=== PATIENT | female | born 1975 | race Caucasian/White ===

== ENCOUNTER 2025-01-08 10:38 | Outpatient (CLI) | payer OTHER, SELFPAY ==
--- OUTSIDE RECORDS SUMMARY | 2025-01-08 11:00 | XMS_ITS | Clinical Summary ---
Author Organization [facility] [place] [address] [place] [id number] Care Team Providers Care Specification Writer Name Role Phone Eran Shields MD Primary Care Provider Lisa Muñiz SR. PRICING ANALYST Unavailable [phone] Allergies Active Allergy Reactions Criticality Noted Date Comments Methotrexate Other (See comments) Low 10/23/2017 Stomach cramps Medications ibuprofen/diphe nhydramine cit (ADVIL PM ORAL) Acti ve multivit with min-folic acid (One-A-Day Women VitaCraves) 200 mcg tablet,chewable Acti ve blood glucose diagnostic (glucose blood) strip 1 each by other route as needed 0 Active atorvastatin (LIPITOR) 20 mg tablet Take 1 tablet (20 mg total) by mouth daily 100 tablet 1 5 Active candesartan (ATACAND) 4 mg tabletIndicatio ns:Hypertension associated with type 2 diabetes mellitus (HCC) Take 1 tablet (4 mg total) by mouth daily 30 tablet 11 5 06/18/19 26 Active empagliflozin (JARDIANCE) 25 mg tabletIndicatio ns:type 2 diabetes mellitus Take 1 tablet (25 mg total) by mouth daily E11.65 90 tablet 4 5 Active ergocalciferol (VITAMIN D) 50,000 unit capsuleIndicati ons:Vitamin D deficiency Take 1 capsule (50,000 Units total) by mouth once a week 8 capsule 1 5 Active glipiZIDE (GLUCOTROL) 10 mg tablet Take 1 tablet (10 mg total) by mouth daily 90 tablet 2 5 Active insulin glargine (TOUJEO) 300 unit/mL (1.5 mL) pen for injectionIndica tions:Controlle d type 2 diabetes mellitus with hyperglycemia, with long-term current use of insulin Inject 10 Units under the skin nightly 3 mL 1 5 Active insulin regular human 4 unit/8 unit/ 12 unit (60) cartridge, w/inhalation deviceIndicatio ns:type 1 diabetes mellitus Inhale 4-16 Units 3 (three) times a day before meals And additional units as needed for glucose control. 48 units daily. Needs the 4,8,12 cartridge box [facility] [id number]. E11.65 30 day supply 180 each 11 5 Active levothyroxine (SYNTHROID) 137 mcg tablet Take 1 tablet (137 mcg total) by mouth daily 90 tablet 1 5 Active metFORMIN (GLUCOPHAGE) 1,000 mg tablet Take 1 tablet (1,000 mg total) by mouth 2 (two) times a day 200 tablet 1 5 Active metoclopramide (REGLAN) 10 mg tablet Take 1 tablet (10 mg total) by mouth every 6 (six) hours 20 tablet 5 Active PARoxetine CR (PAXIL-CR) 12.5 mg 24 hr tablet Take 1 tablet (12.5 mg total) by mouth every morning 100 tablet 1 5 Active ondansetron (Zofran) 4 mg tablet Take 1 tablet (4 mg total) by mouth every 8 (eight) hours as needed for nausea or vomiting 20 tablet 1 5 Active rOPINIRole (REQUIP) 0.25 mg tablet Take 2 tablets (0.5 mg total) by mouth 2 (two) times a day 400 tablet 5 Active tirzepatide (Mounjaro) 5 mg/0.5 mL pen injector injectionIndica tions:type 2 diabetes mellitus Inject 0.5 mL (5 mg total) under the skin every 7 days E11.65 2 mL 11 5 Active tiZANidine (ZANAFLEX) 2 mg tabletIndicatio ns:Muscle Spasm Take 1 tablet (2 mg total) by mouth every 6 (six) hours as needed for muscle spasms 30 tablet 3 5 Active blood-glucose sensor (FreeStyle Suzy 3 Plus Sensor) device USE DIRECTED FOR CONTINUOUS BLOOD SUGAR MONITORING. CHANGE SENSOR AFTER 14 DAYS OF USE. REMOVE OLD SENSOR BEFORE INSERTING A NEW SENSOR 3 each 3 5 Active Active Problems Problem Noted Date Diagnosed Date Class 1 obesity due to exces s calories with serious comorbidity and body mass index (BMI) of 30.0 to 30.9 in adult 03/31/2024 Assessment & Plan (03/31/2024 9:11 AM SKI MAKER): BMI Follow-up includes: nutrition counseling, exercise counseling, and education provided. Lesion of adrenal gland 06/19/2023 Screening for malignant neoplasm of colon 2022 Encounter to establish care 03/24/2022 Assessment & Plan (03/24/2022 12:16 PM SKI MAKER): A(n) initial well visit to establish care has been performed today. Kelly Vizcaino is not up to date on screening tests. She is in need of Diabetic eye exam, Diabetic foot exam, Breast cancer screening, a1c testing, Colon cancer screening, Diabetic kidney disease screening and Cholesterol screening- ordered. She is not up to date on needed preventative vaccinations; She is in need of Pneumonia (Prevnar-13 or Pneumovax- 23). Will start Rybelsus (sample) Ultimately, I would like to replace the glipizide, cut to 5 mg for now Continue metformin Labs pending Mammogram ordered, referral to GI for colonoscopy as well Hyperlipidemia associated with type 2 diabetes rafael abad 03/21/2022 Assessment & Plan (01/09/2024 12:24 PM CDT): This is a chronic condition which is elevated , not at goal. Goal is LDL less than 70 Continue atorvastatin Encouraged to eat healthy, include fresh fruits and vegetables daily and avoid eating fried foods more than once per week. Hypertension associated with type 2 diabetes pepito litus 03/21/2022 Assessment & Plan (01/09/2024 12:23 PM CDT): This is a chronic condition which is not at goal on arrival. At goal after 30 minutes of rest. Goal is less than 140/90 Encouraged to monitor weight and B/P at home. Assessment & Plan (03/14/2023 4:33 PM SKI MAKER): BP ok in office, pt states she gets white coat syndrome. Will monitor and continue current regimen. Renal function looks good. Major depressive disorder wi th single episode, in partial remission 05/20/2018 Gout 04/14/2018 Elbow pain 11/04/2017 Vasovagal near syncope 10/24/2017 Vitamin D deficiency 10/17/2017 Assessment & Plan (03/14/2023 4:33 PM SKI MAKER): Vitamin D low, sending in weekly supplement--will recheck in 3 months with next lab draw. Acquired hypothyroidism 10/07/2017 Assessment & Plan (03/14/2023 4:37 PM SKI MAKER): Over functioning, decreasing Synthroid to 137 mcg and recheck level in 6 weeks. Lateral epicondylitis of right elbow 10/07/2017 Palpitations 10/07/2017 Supraclavicular lymphadenopathy 10/07/2017 Type 2 diabetes mellitus wit h hyperglycemia, with long-term current use of insulin 10/07/2017 Assessment & Plan (01/09/2024 12:23 PM CDT): >>ASSESSMENT AND PLAN FOR DIABETES TYPE 2, CONTROLLED (HCC) WRITTEN ON 03/14/2023 4:36 PM BY DAKOTA TRAN NP A1c has worsened to 8.4 from previous 6.7. Her Toujeo was stopped at last visit and Rybelsus increased to 14 mg, she was unable to tolerate the GI side effects of the 14 mg so has been off of it for about 2-3 weeks. She is ok with going back to the Rybelsus 7 mg, she was able to tolerate. Will restart Toujeo at 10 units nightly (used to be on 15 units), weekly BG readings and be mindful of hypoglycemia. Restarting the Rybelsus at 7 mg. Discussed throttling back on the Glipizide but will monitor the sugars. Assessment & Plan (01/09/2024 12:23 PM CDT): This is a chronic condition which is elevated, not at goal . Goal is less than 7%. Personally reviewed most recent A1c - Lab Results Component Value Date HGBA1C 9.2 01/09/2024 Personally reviewed POC blood sugar- not at goal of 80-180 Lab Results Component Value Date POCGLU 280 01/09/2024 Medication- Continue Toujeo 20 units daily, continue glipizide 10 mg daily, increase Jardiance to 25 mg daily, continue metformin 1000 mg b.i.d.. Stop Rybelsus. Start mounjaro 2.5 mg weekly Monitor blood sugar continuously with cgm. Encouraged annual eye exam. last dilate eGFR- greater than 90 Kidney function-normal Urine microalbumin/creatinine ratio - at goal. Goal is <30 not treated with BARRY/ARB Resolved Problems Problem Noted Date Diagnosed Date Resolved Date Class 1 obesity due to exces s calories with serious comorbidity and body mass index (BMI) of 31.0 to 31.9 in adult 04/14/2018 03/31/2024 Assessment & Plan (01/09/2024 12:25 PM CDT): This is a chronic condition which is worsening Stop Rybelsus. Start mounjaro. 8 lbs. Weight increase since 10/08 Encouraged healthy eating which includes a low carb diet. Avoiding processed foods, sweets and fried foods. Encouraged 30 minutes of walking at least 5 days per week Discussed that exercise can be broken down into small sessions- for example 2- 15 minutes sessions or 3- 10 minutes sessions. Assessment & Plan (06/19/2023 11:52 AM CDT): BMI Follow-up includes: nutrition counseling, exercise counseling, and education provided. Immunizations Immunization Administration Dates Next Due Adenovirus 12/17/2013 Influenza, Quadrivalent, Spl it, Intramuscular 01/21/2017 Influenza, Quadrivalent, Spl it, Preservative Free, Intramuscular 12/18/2022,01/28/2020,01/06/2019 Influenza, Trivalent, Preser vative Free, Intramuscular 12/23/2023 Influenza, Unspecified 12/18/2022,12/21/2021,03/2017 Tdap 12/21/2021,01/06/2019,08/06/2017 Varicella 03/25/2020 Surgical History Surgery Date Site/Laterality Comments APPENDECTOMY 11/2008 HYSTERECTOMY 10/27/2008 CARPAL TUNNEL RELEASE Medical History Medical History Date Comments GERD (gastroesophageal reflux disease) 01/2020 Depression 12/16/2017 Diabetes mellitus 01/2016 Hypertension 01/2016 Thyroid disease 12/2006 H/O exploratory laparotomy Family History Medical History Relation Name Comments Diabetes Father Dominick Bynum Hypertension Father Dominick Bynum Heart disease Father's Brother Kaushal Bynum Diabetes Father's Sister Any Allen Cancer Maternal Grandfather Brannon Ontiveros Hyperlipidemia Maternal Grandmother Brooke Ontiveros Cancer Mother Any Bynum Hyperlipidemia Mother Any Bynum Neurofibromatosis Mother Any Bynum Diabetes Paternal Grandfather Silvio Bynum Heart attack Paternal Grandfather Silvio Bynum Heart disease Paternal Grandfather Silvio Bynum Stroke Paternal Grandfather Silvio Bynum Alzheimer's disease Paternal Grandmother Olena Bynum Stroke Paternal Grandmother Olena Bynum Breast cancer Neg Hx Ovarian cancer Neg Hx Thyroid cancer Neg Hx Relation Name Status Comments Father Dominick Bynum Father's Brother [place] Bynum Father's Sister Any Allen Maternal Grandfather Brannon Ontiveros Maternal Grandmother Brooke Ontiveros Mother Any Bynum Paternal Grandfather Silvio Bynum Paternal Grandmother Olena Bynum Social History Tobacco Use Types Packs/Day Years Used Date Smoking Tobacco: Former Cigarettes 0.1 37.2 S tarted: 10/17/1987 Passive Smoke Exposure: Past Smokeless Tobacco: Never Tobacco Cessation:Counseling Given: Not Answered AUDIT-C Answer Date Recorded Q1: How often do you have a drink containing alcohol? Never 04/03/2023 Q2: How many drinks containi ng alcohol do you have on a typical day when you are drinking? Patient does not drink Q3: How often do you have si x or more drinks on one occasion? Never 04/03/2023 PHQ-2 Answer Date Recorded PHQ-2 Total Score (If total score is 3 or more points, staff should administer the PHQ-9) 0 03/31/2024 Personal Safety Answer Date Recorded Have you ever been in or are you currently in a harmful physical or emotional relationship or is someone making you feel afraid or unsafe? 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 Not on file Not on file Obstetrics History Para Term AB IAB SAB Ectopic Multiple Livin g Live Births 3 3 3 Date Outcome GA Total Labor Labor/04/20 Weight Sex Type Anes PTL Bre A1 A5 Name Clin Term Term Term Last Filed Vital Signs Vital Sign Reading Time Taken Comments Blood Pressure 140/84 03/31/2024 8:49 AM SKI MAKER Pulse 90 03/31/2024 8:49 AM SKI MAKER Temperature 36 C (96.8 F) 03/31/2024 8:49 AM SKI MAKER Respiratory Rate 18 03/31/2024 8:49 AM SKI MAKER Oxygen Saturation 97% 03/31/2024 8:49 AM SKI MAKER Inhaled Oxygen Concentration - - Weight 84.4 kg (186 lb) 03/31/2024 8:49 AM SKI MAKER Height 167.6 cm (5' 6) 03/31/2024 8:49 AM SKI MAKER Body Mass Index 30.02 03/31/2024 8:49 AM SKI MAKER Plan of Treatment Health Maintenance Due Date Last Done Comments Colon Cancer Screening-Colonoscopy 1977 Hepatitis C Screening 1977 Hepatitis B Screening 1995 Pneumococcal vaccine <65 (1 of 2 - PCV) 01/26/1996 Regular Well Visit/Exam 18-64 03/21/2023 03/21/2022 Hemoglobin A1C 07/09/2024 01/09/2024, 07/0 07/2023, 05/27/2023, Additional history exists Breast Cancer Screening-Mammogram 08/05/2024 024, 05/01/2022 Albumin Creatinine Ratio, Urine 09/19/2024 4, 03/26/2022 Influenza Vaccine (#1) 2024 4, 12/18/2022, 12/18/2022, Additional history exists Dilated Eye Exam 12/01/2024 12/02/2023, , 05/12/2021 Foot Exam 01/08/2025 01/09/2024, 07/1 , 06/19/2023, Additional history exists Lipid Panel 03/26/2025 03/26/2024, 07/0 07/2023, 03/13/2023, Additional history exists eGFR 03/26/2025 03/26/2024, 07/0 07/2023, 03/13/2023, Additional history exists Depression Screening 03/31/2025 03/31/2024, 09/25/2023, 06/19/2023, Additional history exists DTaP/Tdap/Td Vaccine (4 - Td or Tdap) 12/22/2031 12/21/2021, 01/06/2019, 08/06/2017 Procedures Procedure Name Priority Date/Time Associated Diagnosis Comments EGFR Routine 03/26/2024 10:20 AM SKI MAKER Hypertension associated with type 2 diabetes mellitus (HCC) LIPID PANEL Routine 03/26/2024 10:20 AM SKI MAKER Hypertension associated with type 2 diabetes mellitus (HCC) POCT HEMOGLOBIN A1C Routine 01/09/2024 9:02 AM CDT Hypertension associated with type 2 diabetes mellitus (HCC) HM DIABETES EYE EXAM Routine 12/02/2023 4:10 PM CDT ALBUMIN CREATININE RATIO, URINE Routine 09/20/2023 12:53 PM CDT DM type 2 with diabetic mixed hyperlipidemia (HCC) Hypertension associated with type 2 diabetes mellitus (HCC) SCREENING MAMMOGRAM BILATERAL W SHALOM Schedule Routine, Read Routine (OP Routine) 08/06/2023 1:07 PM CDT Screening mammogram, encounter for from Last 3 Months or Most Recently Relevant to Health Maintenance Results * eGFR (03/26/2024 10:20 AM SKI MAKER) eGFR >90 >=60 mL/min/1. 73 m2 Comment: Interpretive Data Reference Interval Normal >/= 90 mL/min/1.73m2 Mildly decreased* 60 - 89 mL/min/1.73m2 Mildly to moderately decreased 45 - 59 mL/min/1.73m2 Moderately to severely decreased 30 - 44 mL/min/1.73m2 Severely decreased 15 - 29 mL/min/1.73m2 Kidney Failure < 15 mL/min/1.73m2 *Relative to young adult level Estimated glomerular filtration rate is determined by the 2020 CKD-EPI equation recommended by the National Kidney Foundation (A Unifying Approach to GFR Estimation: Recommendations of the NKF-ASK Task Force on Reassessing the Inclusion of Race in Diagnosing Kidney Disease, JASN 2020). The CKD-EPI equation should not be used for patients with unstable renal function and has not been validated in children and those over 70. Current interpretive data was last reviewed 2021. Blood 03/26/2024 10:2 0 AM SKI MAKER 03/26/2024 10:30 AM SKI MAKER us Eran Shields MD LAB BLOOD ORDERABLES Final Result TERRY OSEI (O'BRIEN) 1 [facility] Department [place] [address] * (ABNORMAL) Lipid panel (03/26/2024 10:20 AM SKI MAKER) Cholesterol 145 30 - 199 mg/dL Comment: Interpretive Data Ages < or = 19 years Acceptable: <170 mg/dL Borderline high: 170-199 mg/dL High: >or= 200 mg/dL Ages > or = 20 years Desirable: <200 mg/dL Borderline high: 200-239 mg/dL High: >or= 240 mg/dL Literature References: 1. Expert Panel on Integrated Guidelines for Cardiovascular Health and Risk Reduction in Children and Adolescents. Pediatrics 2011;128:S213 2. NCEP Expert Panel. Circulation 2004;110:227 Current Interpretive Data was last revised on 2017. Triglycerides 164(H) <=149 mg/dL TERRY OSEI (O'BRIEN) Comment: Interpretive Data Ages < or = 9 years Acceptable: <75 mg/dL Borderline high: 75-99 mg/dL High: >or= 100 mg/dL Ages 10 to 20 years Acceptable: <90 mg/dL Borderline high: 90-129 mg/dL High: >or= 130 mg/dL Ages > or = 20 years Desirable: <150 mg/dL Borderline high: 150-199 mg/dL High: 200-499 mg/dL Very high: >or= 499 mg/dL Literature References: 1. Expert Panel on Integrated Guidelines for Cardiovascular Health and Risk Reduction in Children and Adolescents. Pediatrics 2011;128:S213 2. NCEP Expert Panel. Circulation 2004;110:227 Current Interpretive Data was last revised on 2017. HDL 34(L) >=40 mg/dL TERRY FERGUSON) Comment: Interpretive Data Ages < or = 19 years Acceptable: >45 mg/dL Borderline low: 40-45 mg/dL Low: <40 mg/dL Ages > or = 20 years Desirable: >or= 60 mg/dL Low: <40 mg/dL Literature References: 1. Expert Panel on Integrated Guidelines for Cardiovascular Health and Risk Reduction in Children and Adolescents. Pediatrics 2011;128:S213 2. NCEP Expert Panel. Circulation 2004;110:227 Current Interpretive Data was last revised on 2017. LDL, calculated 82 <=129 mg/dL TERRY FERGUSON) Comment: Interpretive Data Ages < or = 19 years Acceptable: <110 mg/dL Borderline high: 110-129 mg/dL High: >or= 130 mg/dL Ages > or = 20 years Optimal: <100 mg/dL Near optimal: 100-129 mg/dL Borderline high: 130-159 mg/dL High: >160 mg/dL Calculated using the Johan LDL-C estimating equation. This equation was implemented on 2023. Prior to this date LDL-C was estimated using the Friedewald equation. Literature References: 1. Expert Panel on Integrated Guidelines for Cardiovascular Health and Risk Reduction in Children and Adolescents. Pediatrics 2011;128:S213 2. NCEP Expert Panel. Circulation 2004;110:227 3. Johan Jennings al. RADHA Cardiol. 2020 July 16;5(5):540-548. doi: 10.1001/jamacardio.2020.0013 Current Interpretive Data was last revised on 2023. Non-HDL Cholesterol 111 mg/dL TERRY OSEI (O'BRIEN) Comment: Interpretive Data Ages < or = 19 years Acceptable: <120 mg/dL Borderline high: 120-144 mg/dL High: >145 mg/dL Ages > or = 20 years When triglycerides are >200 mg/dL, Non-HDL cholesterol is a secondary target of therapy with treatment goals that are 30 mg/dL greater than the LDL cholesterol target. Literature References: 1. Expert Panel on Integrated Guidelines for Cardiovascular Health and Risk Reduction in Children and Adolescents. Pediatrics 2011;128:S213 2. NCEP Expert Panel. Circulation 2004;110:227 Current Interpretive Data was last revised on 2017. Chol/HDL ratio 4 SARAHI OSEI (O'BRIEN) Blood 03/26/2024 10:2 0 AM SKI MAKER 03/26/2024 10:30 AM SKI MAKER Eran Shields MD LAB BLOOD ORDERABLES Final Result TONYSERG OSEI (O'BRIEN) 1 [facility] Department [place] [address] * (ABNORMAL) POCT hemoglobin A1c (01/09/2024 9:02 AM CDT) Hemoglobin A1C, POC 9.2 4.0 - 5.6 % Blood 01/09/2024 9:02 AM CDT Lisa Muñiz NP POINT OF CARE TEST ORDERABLES F inal Result * HM DIABETES EYE EXAM (12/02/2023 4:10 PM CDT) us Historical Provider HEALTH MAINTENANCE Final Result * Albumin Creatinine Ratio, Urine (09/20/2023 12:53 PM CDT) Albumin Ur <12.0 mg/L Comment: Interpretive Data No reference range established. Current interpretive data was last revised 2018. Testing performed by: [facility], [address] [place]., [address] Creatinine Ur 44.2 mg/dL TERRY OSEI (RAJAN) Comment: Interpretive Data No reference range established. Current interpretive data was last revised 2018. Testing performed by: [facility], [address] [place] [address]., [id number] Albumin Creatinine Ratio, Ur <27 1 - 29 mg/g TERRY OSEI (RAJAN) Comment:Testing performed by : [facility], [address] [place] [address]., [id number] Urine 09/20/2023 12:5 3 PM CDT 09/20/2023 5:15 PM CDT us Eran Shields MD LAB URINE ORDERABLES Final Result TERRY OSEI (RAJAN) 1 [facility] Department [place] [address] * Screening Mammogram Bilateral [place] (08/06/2023 1:07 PM CDT) Anatomical Region Laterality Modality Breast Bilateral Mammography 08/06/2023 2:16 PM CDT Impressions 08/06/2023 2:16 PM CDT There is no mammographic evidence of malignancy. A 1 year screening mammogram is recommended. BI-RADS: 2 - Benign. The patient has been or will be contacted. The patient will be entered into a reminder system with a target due date of 1 year for her next mammogram. Electronically signed by: Tanya Marcelino M.D. Narrative 08/06/2023 2:16 PM CDT EXAMINATION: SCREENING MAMMOGRAM BILATERAL W SHALOM ORDERING HEALTHCARE PROVIDER: SELF SCREENING MAMMOGRAM HISTORY: Routine screening mammography. COMPARISON: 05/01/2022, 06/15/2021 TECHNIQUE: CC and MLO views of the bilateral breasts were obtained with digital technique using breast tomosynthesis with C view. Computer aided detection was utilized. FINDINGS: DENSITY: There are scattered fibroglandular elements in the bilateral breasts. BREASTS: There are multiple stable small benign-appearing bilateral breast masses. There are no suspicious masses, suspicious calcifications, or other suspicious findings in either breast. There has been no suspicious interval change. us Self Screening Mammogram IMG MAMMO PROCEDURES Fi nal Result from Last 3 Months or Most Recently Relevant to Health Maintenance Insurance [facility] [employer] [employer] [facility] [employer] Address: [facility] [id number] [place] [phone] [facility] [employer] Address: [facility] [id number] [place] [phone] [facility] [employer] Address: [facility] [id number] [place] [phone] Care Teams Specification Writer Relationship Specialty Start Date End Date Eran Shields MD [address] [place] [address] PCP - General Family Medicine 03/21/22 Lisa Muñiz NP [address] [facility] [address] [place] [address] Nurse Practitioner Endocrinology Diabetes & Metabolism 06/24/24
--- OUTSIDE RECORDS SUMMARY | 2025-01-08 11:00 | XMS_ITS | Continuity of Care Document ---
Author Organization [id number] | [employer] Address [address] [facility] [address] [place] [id number] Insurance Providers Payer Plan Claims Address Claims Phone Policy Number Group Number Relation Employer Guarantor Name Guarantor Guarantor Address Guarantor Phone [employer] [address], [place] [address] tel:[phone] [employer] [address], [place] [address] tel:[phone] [employer] [address], [place] [address] tel:[phone] Problems Condition ICD9 code ICD10 code SNOMED code Start Date End Date S tatus Encounter for screening for other metabolic disorders Z13.228 Results Test Result Date/Time Value / Unit Interp. Refere nce Range LIPID PANEL, STANDARD[[id number]] Collected: 09/22/2024 07:07 PM Specimen Received: 09/22/2024 07:08 PM Source: [facility]:YESFASTING: YES CHOLESTEROL, TOTAL [[id number]] 09/23/2024 12:31 PM 156 mg/dL N 200 mg/dL HDL CHOLESTEROL [[id number]] 09/23/2024 12:31 PM 42 mg/dL L > OR = 50 mg/dL TRIGLYCERIDES [[id number]] 09/23/2024 12:31 PM 125 mg/dL N 150 mg/dL LDL-CHOLESTEROL [[id number]] 09/23/2024 12:31 PM 9 1 mg/dL (calc) N Reference range: or = 2 CHD risk factors. LDL-C is now calculated using the Maycol-Rascon calculation, which is a validated novel method providing better accuracy than the Friedewald equation in the estimation of LDL-C. Maycol SS et al. RADHA. 2013;310(19): 9145-5729 (http://education.[employer]/faq/GBK139) CHOL/HDLC RATIO [[id number]] 09/23/2024 12:31 PM 3.7 (calc) N 5.0 (calc) NON HDL CHOLESTEROL [[id number]] 09/23/2024 12:31 PM 114 mg/dL (calc) N 130 mg/dL (calc) For patients with diabetes p frank 1 major ASCVD risk factor, treating to a non-HDL-C goal of 100 mg/dL (LDL-C of <70 mg/dL) is considered a therapeutic option. ALBUMIN, RANDOM URINE W/CREA KIMBERLY[[id number]] Collected: 09/22/2024 07:07 PM Specimen Received: 09/22/2024 07:08 PM Source: [facility]:YESFASTING: YES CREATININE, RANDOM URINE [[id number]] 09/23/2024 12:31 PM 110 mg/dL N 20-275 mg/dL ALBUMIN, URINE [[id number]] 09/23/2024 12:31 PM 0.5 mg/dL N See Note: mg/dL Reference Range:Reference Ra ngeNot established ALBUMIN/CREATININE RATIO, RANDOM URINE [[id number]] 09/23/2024 12:31 PM 5 mg/g creat N 30 m g/g creat The ADA defines abnormalitie s in albuminexcretion as follows: Albuminuria Category Result (mg/g creatinine) Normal to Mildly increased OR = 300 The ADA recommends that at least two of threespecimens collected within a 3-6 month period beabnormal before considering a patient to bewithin a diagnostic category. COMPREHENSIVE METABOLIC PANE L[[id number]] Collected: 09/22/2024 07:07 PM Specimen Received: 09/22/2024 07:08 PM Source: [facility]:YESFASTING: YES GLUCOSE [[id number]] 09/23/2024 12:31 PM 151 mg/dL H 65-99 mg/dL Fasting reference interval F or someone without known diabetes, a glucosevalue >125 mg/dL indicates that they may havediabetes and this should be confirmed with afollow-up test. UREA NITROGEN (BUN) [] 09/23/2024 12:31 PM 13 mg/dL N 7-25 mg/dL CREATININE [[id number]] 09/23/2024 12:31 PM 0.59 mg/dL N 0.50-0.99 mg/dL EGFR [[id number]] 09/23/2024 12:31 PM 112 mL/min/1.73m2 N > OR = 60 mL/min/1.73m2 BUN/CREATININE RATIO [] 09/23/2024 12:31 PM SEE NOTE: (calc) 6-22 (calc) Not Reported: BUN and Creati nine are within reference range. SODIUM [[id number]] 09/23/2024 12:31 PM 138 mmol/L N 135-146 mmol/L POTASSIUM [[id number]] 09/23/2024 12:31 PM 4.4 mmol/L N 3.5-5.3 mmol/L CHLORIDE [[id number]] 09/23/2024 12:31 PM 103 mmol/L N 98-110 mmol/L CARBON DIOXIDE [[id number]] 09/23/2024 12:31 PM 26 mmol/L N 20-32 mmol/L CALCIUM [[id number]] 09/23/2024 12:31 PM 9.7 mg/dL N 8.6-10.2 mg/dL PROTEIN, TOTAL [[id number]] 09/23/2024 12:31 PM 7.1 g/dL N 6.1-8.1 g/dL ALBUMIN [[id number]] 09/23/2024 12:31 PM 4.2 g/dL N 3.6-5.1 g/dL GLOBULIN [[id number]] 09/23/2024 12:31 PM 2.9 g/dL (calc) N 1.9-3.7 g/dL (calc) ALBUMIN/GLOBULIN RATIO [[id number]] 09/23/2024 12:31 PM 1.4 (calc) N 1.0-2.5 (sharmin c) BILIRUBIN, TOTAL [[id number]] 09/23/2024 12:31 PM 0.5 mg/dL N 0.2-1.2 mg/d L ALKALINE PHOSPHATASE [[id number]] 09/23/2024 12:31 PM 66 U/L N 31-125 U/L AST [[id number]] 09/23/2024 12:31 PM 18 U/L N 1 0-35 U/L ALT [[id number]] 09/23/2024 12:31 PM 37 U/L H 6 -29 U/L HEMOGLOBIN A1c[[id number]] Collected: 09/22/2024 07:07 PM Specimen Received: 09/22/2024 07:08 PM Source: [facility]:YESFASTING: YES HEMOGLOBIN A1c [[id number]] 09/23/2024 12:31 PM 7. 1 % of total Hgb H 5.7 % of total Hgb For someone without known di abetes, a hemoglobin R3rzdsst of 6.5% or greater indicates that they may have diabetes and this should be confirmed with a follow-up test. For someone with known diabetes, a value 7% indicates that their diabetes is well controlled and a value greater than or equal to 7% indicates suboptimal control. A1c targets should be individualized based on duration of diabetes, age, comorbid conditions, and other considerations. Currently, no consensus exists regarding use ofhemoglobin A1c for diagnosis of diabetes for children. Clinical PDF Report [id number][ClinicalPDFReport1] Collected: 09/22/2024 07:07 PM Specimen Received: 09/22/2024 07:08 PM Source: [facility]:YESFASTING: YES Clinical PDF Report [id number] [ClinicalPDFReport1] STL Allergies, adverse reactions, alerts No known allergies and adverse reactions Medications No administered medications reported Vital Signs No vital signs reported Social History No smoking Hx information available"
--- OUTSIDE RECORDS SUMMARY | 2025-01-08 11:00 | XMS_ITS | Clinical Summary ---
Author Organization [facility] Address [address] [place] [address] Care Team Providers Care Handhole Machine Operator Name Role Phone Martha Silvestre Primary Care Provider [phone] John Huerta MD Unavailable [phone] Allergies Active Allergy Reactions Criticality Noted Date Comments Methotrexate Other (see comment) 10/23/2017 Stomach cramps Medications Glucose Blood (ACCU-CHEK ACTIVE STRIPS) test stripIndications:C ontrolled type 2 diabetes mellitus without complication, without long-term current use of insulin ([facility]) 1 strip by Other route as needed. Use as instructed twice daily 200 strip 3 10/27/19 20 Active albuterol sulfate HFA (PROAIR HFA) 108 (90 Base) MCG/ACT inhalerIndications :Shortness of breath,Cough Inhale 2 puffs into the lungs every 6 (six) hours as needed for Wheezing. 1 Inhaler 02/03/20 20 Active atorvastatin 20 MG tabletIndications: Hyperlipidemia, unspecified hyperlipidemia type Take 1 tablet (20 mg total) by mouth every evening. 90 tablet 3 05/20/19 21 Active metFORMIN ER 500 MG 24 hr tabletIndications: Controlled type 2 diabetes mellitus without complication, without long-term current use of insulin ([facility] HHS/HCC) Take 2 tablets (1,000 mg total) by mouth 2 (two) times a day. 360 tablet 1 05/20/19 21 Active rOPINIRole 0.25 MG tabletIndications: Restless leg syndrome TAKE 1 TABLET BY MOUTH 2 HOURS PRIOR TO SLEEP, IF NO IMPROVEMENT INCREASE TO 2 TABLETS BY MOUTH 60 tablet 11 05/20/19 21 Active levothyroxine 150 MCG tabletIndications: Acquired hypothyroidism Take 1 tablet (150 mcg total) by mouth every morning. 90 tablet 3 05/20/19 21 Active PARoxetine CR 12.5 MG 24 hr tabletIndications: Major depressive disorder with single episode, in partial remission Take 1 tablet (12.5 mg total) by mouth every morning. 90 tablet 1 08/27/19 21 Active OZEMPIC 0.25/0.5 MG/DOSE 2 MG/1.5ML injection (PEN)Indications:C ontrolled type 2 diabetes mellitus without complication, without long-term current use of insulin ([facility]) INJECT 0.25MG SUB-Q ONCE EVERY 7 DAYS 2 mL 10/14/19 21 Active LOSARTAN 25 MG tabletIndications: Essential hypertension Take 1 tablet by mouth once daily 30 tablet 12/13/19 21 Active HYDROCHLOROTHIAZID E 12.5 MG tabletIndications: Essential hypertension TAKE 1 TABLET BY MOUTH IN THE MORNING 30 tablet 12/13/19 21 Active Active Problems Problem Noted Date Diagnosed Date Major depressive disorder wi th single episode, in partial remission 05/20/2018 Gout 04/14/2018 Class 1 obesity in adult 04/14/2018 Elbow pain 11/04/2017 Vasovagal near syncope 10/24/2017 Supraclavicular lymphadenopathy 10/24/2017 Acquired hypothyroidism 10/24/2017 Vitamin D deficiency 10/17/2017 Diabetes type 2, controlled 10/07/2017 Lateral epicondylitis of right elbow 10/07/2017 Hypothyroidism 10/07/2017 Hypertension, benign 10/07/2017 Heart palpitations 10/07/2017 Supraclavicular lymphadenopathy 10/07/2017 Palpitations Hyperlipidemia Essential hypertension Resolved Problems Problem Noted Date Diagnosed Date Resolved Date Sore throat 12/20/2017 05/20/2018 Hyperlipidemia 10/07/2017 01/06/2019 Encounter for preventive health examination 10/02/2017 11/27/2019 Immunizations Immunization Administration Dates Next Due Fluzone 6 Months+ Quad (0.5 mL Prefilled Syringe ) 01/28/2020,01/06/2019 Influenza Adult (Generic) 12/16/2017 Tdap (Historical Only-select from magnify glass) 01/06/2019 Family History Medical History Relation Comments Diabetes Father Hypertension Father neurfibromatosis Mother MS Paternal Grandfather Open Heart Paternal Grandfather Stroke Paternal Grandfather Stroke Paternal Grandmother Relation Status Comments Brother Alive Father Alive Maternal Grandfather (Age 73) Maternal Grandmother Alive Mother Alive Paternal Grandfather (Age 67) Paternal Grandmother (Age 89) Sister 1 Alive Sister 2 Alive Social History Tobacco Use Types Packs/Day Years Used Date Smoking Tobacco: Every Day Cigarettes 1 5.8 Started: 2019 Smokeless Tobacco: Never Alcohol Use Standard Drinks/Week Comments No 0 (1 standard drink = 0.6 oz pur e alcohol) AUDIT-C Answer Date Recorded Frequency of Alcohol Consumption Never 05/20/2018 Average Number of Drinks Not on file 019 Frequency of Binge Drinking Not on file 07/2018 PHQ-2 Answer Date Recorded PHQ-2 Score 1 06/16/2018 Comments No Sex and Gender Information Value Date Recorded Sex Assigned at Not on file Legal Sex Female 4:04 PM CDT Gender Identity Not on file Sexual Orientation Not on file Occupation Industry Job Start Date Job End Date RN Not on file Not on file Not on file Last Filed Vital Signs Vital Sign Reading Time Taken Comments Blood Pressure 118/80 01/28/2020 8:57 AM SILVERER Pulse 81 01/28/2020 8:57 AM SILVERER Temperature 36.2 C (97.1 F) 01/28/2020 8:57 AM SILVERER Respiratory Rate 20 01/28/2020 8:57 AM SILVERER Oxygen Saturation 95% 01/28/2020 8:57 AM SILVERER Inhaled Oxygen Concentration - - Weight 86.2 kg (190 lb) 02/03/2020 8:58 AM SILVERER Height 165.1 cm (5' 5) 02/03/2020 8:58 AM SILVERER Body Mass Index 31.62 02/03/2020 8:58 AM SILVERER Plan of Treatment Health Maintenance Due Date Last Done Comments Colorectal Cancer Screening Colonoscopy (10 Years) 1977 Annual Physical 01/26/1980 Hepatitis B Vaccines (1 of 3 - 19+ 3-dose series) 01/26/1996 Pneumococcal Vaccine: Pediatrics (0 to 5 Years) and At-Risk Patients (6 to 49 Years) (1 of 2 - PCV) 01/26/1996 Mammogram Screening 05/08/2024 05/08/2022 COVID-19 Vaccine ( season) 2024 Influenza Adult (#1) 2024 12/18/2022, 12/21/2021, 01/28/2020, Additional history exists DTaP, Tdap and Td Vaccines (3 - Td or Tdap) 12/22/2031 12/21/2021, 01/06/2019 Hepatitis C Completed 04/07/2019 Hepatitis A Vaccines Aged Out No long er eligible based on patient's age to complete this topic Meningococcal B Vaccine Aged Out No l onger eligible based on patient's age to complete this topic Meningococcal Vaccine Aged Out No elvin ronny eligible based on patient's age to complete this topic RSV Immunizations Under 20 Months Aged Out No longer eligible based on patient's age to complete this topic Procedures Procedure Name Priority Date/Time Associated Diagnosis Comments MAMMOGRAM GENERIC (SCAN ORDER) Routine 05/08/2022 HEPATITIS C ANTIBODY Routine 04/07/2019 8:54 AM SILVERER Elevated liver enzymes from Last 3 Months or Most Recently Relevant to Health Maintenance Results * MAMMOGRAM (05/08/2022) Anatomical Region Laterality Modality Other us Doc Med Group Scanned SCANNING Final Resu lt * HEPATITIS C ANTIBODY (04/07/2019 8:54 AM SILVERER) HEPATITIS C AB NON-REACTI VE NON-REACTI VE 04/10/2019 10:16 AM SILVERER [facility] 04/07/2019 8:54 AM SILVERER [facility] Final Resul t [facility] [address] [place] [address], [place] [phone] from Last 3 Months or Most Recently Relevant to Health Maintenance Care Teams Handhole Machine Operator Relationship Specialty Start Date End Date Martha Silvestre APNP Family & Internal Medicine [address] [address] PCP - General ADVANCED PRACTICE CHAIR POST MACHINE OPERATOR 10/08/17 John Huerta MD 3 [facility] [address] [place] [phone] [employer] Underwater Trapper CARDIOVASCULAR DISEASE 10/23/17
[2025-01-08 13:01] LABS: Hematocrit 46.4 % (37.0-47.0); Hemoglobin 15.5 g/dL (12.0-15.0); Immature Granulocyte Percent A 0.2 % (0-0.5); Lymphocytes Absolute Auto 1.88 K/mm3 (0.9-3.2); Mean Corpuscular HGB Conc 33.4 g/dl (32-36); Mean Corpuscular Hemoglobin 29.6 pg (26-34); Mean Corpuscular Volume 88.7 fl (80-100); Nucleated Red Blood Cells Absolute Auto 0.000 K/mm3 (0.0-0.012); Nucleated Red Blood Cells Perc 0.0 % (0.0-0.2); Platelet Count Result 236 k/mm3 (150-375); Red Blood Count 5.23 M/mm3 (4.2-5.4); White Blood Count 6.4 K/mm3 (4.5-10.0)
[2025-01-08 13:09] LABS: Hemoglobin A1C 11.3 % (<5.7)
[2025-01-08 13:10] LABS: Add Urine Microscopic? YES; Appearance Urine Cloudy (Clear); Glucose Urine UA 3+ mg/dL (Negative); Leukocyte Esterase Ur Trace LEU/UL (Negative); Nitrate Urine Positive (Negative); Non Pathogenic Casts 0-2; Specific Grav Ur 1.030 (1.001-1.035)
[2025-01-08 13:27] LABS: Alanine Aminotransferase 70 U/L (6-35); Albumin Level 4.7 g/dL (3.5-5.1); Alkaline Phosphatase 85 U/L (38-126); Anion Gap 12 mmol/L (4-12); Aspartate Amino Transferase 54 U/L (14-36); Bilirubin,Total 0.9 mg/dL (0.2-1.3); Blood Urea Nitrogen 11 mg/dL (7-17); Calcium 9.5 mg/dL (8.4-10.2); Carbon Dioxide 24 mmol/L (22-30); Chloride 99 mmol/L (98-107); Cholesterol 233 mg/dL (0-200); Estimated Glomerular Filt Rate > 60; Glucose 278 mg/dL (65-110); HDL Direct 34 mg/dL; Potassium 4.1 mmol/L (3.4-5.0); Sodium 135 mmol/L (137-145); Total Protein 8.2 g/dL (6.3-8.2); Triglycerides 215 mg/dL (<150)
[2025-01-08 14:04] LABS: Thyroid Stimulating Hormone 0.288 uIU/mL (0.465-4.680)
[2025-01-08 14:40] LABS: Vitamin B12 865.0 pg/mL (239-931)
[2025-01-08 15:10] LABS: MALB Creatinine Ratio 23.4 mg/g (0-30)
== END 2025-01-08 10:39 | disposition home or self-care (01) ==
LOC: ANHGOSHLAB 10:40
PROVIDERS: PCP Internal Medicine
DX: Z13.0 Encounter for screening for diseases of the blood and blood-forming organs and certain disorders involving the immune mechanism (principal); Z13.29 Encounter for screening for other suspected endocrine disorder; Z13.228 Encounter for screening for other metabolic disorders; E78.5 Hyperlipidemia, unspecified; E03.9 Hypothyroidism, unspecified; R53.83 Other fatigue; E11.9 Type 2 diabetes mellitus without complications; E55.9 Vitamin D deficiency, unspecified; R39.9 Unspecified symptoms and signs involving the genitourinary system; Z79.4 Long term (current) use of insulin
CPT/HCPCS: 36415; 80053; 80061; 81001; 82043; 82172; 82306; 82607; 82746; 83036; 84443; 85025; 87077; 87086; 87186

== ENCOUNTER 2025-01-18 17:19 | Emergency (ER) | payer OTHER, SELFPAY ==
[2025-01-18 17:25] VITALS: BP 158/99; PULSE 84; RESP 18; TEMP 36.5; O2SAT 92
--- NOTE | 2025-01-18 17:39 | ECG_ITS ---
Test Date: 2025-01-18 17:46:32 Measurements Intervals Angie Rate: 76 P: 60 MS: 178 QRS: 59 QRSD: 92 T: 65 QT: 384 QTc: 434 Interpretive Statements SINUS RHYTHM INCOMPLETE RIGHT BUNDLE BRANCH BLOCK [90+ ms QRS DURATION, TERMINAL R IN V1/V2, 40+ ms S IN I/aVL/V4/V5/V6] MINIMAL ST DEPRESSION [0.025+ mV ST DEPRESSION] No previous ECG available for comparison Electronically Signed On 01-18-2025 18:46:55 GROCERY CADDY by Vanessa Nolasco M.D.
--- OUTSIDE RECORDS SUMMARY | 2025-01-18 17:42 | XMS_ITS | Clinical Summary ---
Author Organization [facility] Address [address] [place] [id number] Care Team Providers Care Portfolio Assistant Name Role Phone Eran Shields MD Primary Care Provider Lisa Muñiz HEEL SANDER RUBBER Unavailable [phone] Allergies Active Allergy Reactions Criticality Noted [...] units daily. Needs the 4,8,12 cartridge box [facility] [address]-41. E11.65 30 day supply 180 each 11 [...] 03/31/2024 Assessment & Plan (03/31/2024 9:11 AM BIOMED TECH): BMI Follow-up includes: nutrition counseling, exercise counseling, and education provided. Lesion of adrenal gland 06/19/2023 Screening for malignant neoplasm of colon 2022 Encounter to establish care 03/24/2022 Assessment & Plan (03/24/2022 12:16 PM BIOMED TECH): A(n) initial well visit to establish care [...] home. Assessment & Plan (03/14/2023 4:33 PM BIOMED TECH): BP ok in office, pt states she gets white coat syndrome. Will monitor and continue current regimen. Renal function looks good. Major depressive disorder wi th single episode, in partial remission 05/20/2018 Gout 04/14/2018 Elbow pain 11/04/2017 Vasovagal near syncope 10/24/2017 Vitamin D deficiency 10/17/2017 Assessment & Plan (03/14/2023 4:33 PM BIOMED TECH): Vitamin D low, sending in weekly supplement--will recheck in 3 months with next lab draw. Acquired hypothyroidism 10/07/2017 Assessment & Plan (03/14/2023 4:37 PM BIOMED TECH): Over functioning, decreasing Synthroid to 137 mcg [...] Used Date Smoking Tobacco: Former Cigarettes 0.1 37.3 S tarted: 10/17/1987 Passive Smoke Exposure: Past [...] on file Legal Sex Female 3:22 AM BIOMED TECH Gender Identity Not on file Sexual Orientation [...] Comments Blood Pressure 140/84 03/31/2024 8:49 AM BIOMED TECH Pulse 90 03/31/2024 8:49 AM BIOMED TECH Temperature 36 C (96.8 F) 03/31/2024 8:49 AM BIOMED TECH Respiratory Rate 18 03/31/2024 8:49 AM BIOMED TECH Oxygen Saturation 97% 03/31/2024 8:49 AM BIOMED TECH Inhaled Oxygen Concentration - - Weight 84.4 kg (186 lb) 03/31/2024 8:49 AM BIOMED TECH Height 167.6 cm (5' 6) 03/31/2024 8:49 AM BIOMED TECH Body Mass Index 30.02 03/31/2024 8:49 AM BIOMED TECH Plan of Treatment Health Maintenance Due Date [...] Diagnosis Comments EGFR Routine 03/26/2024 10:20 AM BIOMED TECH Hypertension associated with type 2 diabetes mellitus (HCC) LIPID PANEL Routine 03/26/2024 10:20 AM BIOMED TECH Hypertension associated with type 2 diabetes mellitus [...] Maintenance Results * eGFR (03/26/2024 10:20 AM BIOMED TECH) eGFR >90 >=60 mL/min/1. 73 m2 Comment: [...] reviewed 2021. Blood 03/26/2024 10:2 0 AM BIOMED TECH 03/26/2024 10:30 AM BIOMED TECH us Eran Shields MD LAB BLOOD ORDERABLES Final Result TERRY OSEI ([place]) [address] [facility] Department [place] [address] * (ABNORMAL) Lipid panel (03/26/2024 10:20 AM BIOMED TECH) Cholesterol 145 30 - 199 mg/dL Comment: [...] 2017. Triglycerides 164(H) <=149 mg/dL TERRY OSEI ([place]) Comment: Interpretive Data Ages < or = [...] 2023. Non-HDL Cholesterol 111 mg/dL TERRY OSEI ([place]) Comment: Interpretive Data Ages < or = [...] on 2017. Chol/HDL ratio 4 SARAHI OSEI ([place]) Blood 03/26/2024 10:2 0 AM BIOMED TECH 03/26/2024 10:30 AM BIOMED TECH Eran Shields MD LAB BLOOD ORDERABLES Final Result TONYSERG OSEI ([place]) 1 [facility] Department [place] [address] * (ABNORMAL) POCT hemoglobin A1c (01/09/2024 9:02 [...] was last revised 2018. Testing performed by: [facility], [address] [place]., [address] Creatinine Ur 44.2 mg/dL TERRY OSEI ([place]) Comment: Interpretive Data No reference range established. Current interpretive data was last revised 2018. Testing performed by: [facility], [address] [place] [address]., [address] Albumin Creatinine Ratio, Ur <27 1 - 29 mg/g TERRY OSEI ([place]) Comment:Testing performed by : [facility], [address] [place] [address]., [id number] Urine 09/20/2023 12:5 3 PM CDT 09/20/2023 5:15 PM CDT us Eran Shields MD LAB URINE ORDERABLES Final Result TERRY OSEI ([place]) 1 [facility] Department [place] [address] * Screening Mammogram Bilateral W Shal[place] (08/06/2023 [...] Most Recently Relevant to Health Maintenance Insurance FOR[facility]LY [facility] EMPLOYEE HE[employer] PLANS Address: [facility] [id number] [place] [phone] FORMERLY [facility] EM[employer]EE HE[employer] PLANS Address: [facility] [id number] [place] [id number] FORMERLY [facility] [employer] PL[employer] Address: [facility] [id number] [place] [phone] Care Teams Portfolio Assistant Relationship Specialty Start Date End Date Eran Shields MD [address] [place] [address] PCP - General Family Medicine 03/21/22 Lisa Muñiz NP [address] [facility] [address] [place] [address] Nurse Practitioner Endocrinology Diabetes & Metabolism 06/24/24
--- OUTSIDE RECORDS SUMMARY | 2025-01-18 17:42 | XMS_ITS | Clinical Summary ---
Author Organization [facility] Address [address] [place] [address] Care Team Providers Care Design Consultant Name Role Phone Martha Silvestre Primary Care Provider [phone] John Huerta MD Unavailable [phone] Allergies Active Allergy Reactions Criticality Noted Date Comments Methotrexate Other (see comment) 10/23/2017 Stomach cramps Medications Glucose Blood (ACCU-CHEK ACTIVE STRIPS) test stripIndications:C ontrolled type 2 diabetes mellitus without complication, without long-term current use of insulin ([facility]) 1 strip by Other route as needed. [...] complication, without long-term current use of insulin ([facility] HHS/HCC) Take 2 tablets (1,000 mg total) [...] complication, without long-term current use of insulin ([facility]) INJECT 0.25MG SUB-Q ONCE EVERY 7 DAYS [...] Comments Diabetes Father Hypertension Father neurfibromatosis Mother PA Paternal Grandfather Open Heart Paternal Grandfather Stroke [...] Comments Blood Pressure 118/80 01/28/2020 8:57 AM REPORT CLERK Pulse 81 01/28/2020 8:57 AM REPORT CLERK Temperature 36.2 C (97.1 F) 01/28/2020 8:57 AM REPORT CLERK Respiratory Rate 20 01/28/2020 8:57 AM REPORT CLERK Oxygen Saturation 95% 01/28/2020 8:57 AM REPORT CLERK Inhaled Oxygen Concentration - - Weight 86.2 kg (190 lb) 02/03/2020 8:58 AM REPORT CLERK Height 165.1 cm (5' 5) 02/03/2020 8:58 AM REPORT CLERK Body Mass Index 31.62 02/03/2020 8:58 AM REPORT CLERK Plan of Treatment Health Maintenance Due Date [...] HEPATITIS C ANTIBODY Routine 04/07/2019 8:54 AM REPORT CLERK Elevated liver enzymes from Last 3 Months or Most Recently Relevant to Health Maintenance Results * MAMMOGRAM (05/08/2022) Anatomical Region Laterality Modality Other us Doc Med Group Scanned SCANNING Final Resu lt * HEPATITIS C ANTIBODY (04/07/2019 8:54 AM REPORT CLERK) HEPATITIS C AB NON-REACTI VE NON-REACTI VE 04/10/2019 10:16 AM REPORT CLERK [facility] 04/07/2019 8:54 AM REPORT CLERK [facility] Final Resul t [facility] [address] [place] [address], [place] [phone] from Last 3 Months or Most Recently Relevant to Health Maintenance Care Teams Design Consultant Relationship Specialty Start Date End Date Martha Silvestre APNP Family & Internal Medicine [address] [address] PCP - General ADVANCED PRACTICE REEL WORKER 10/08/17 John Huerta MD 3 [facility] [address] [place] [phone] [place] Aviation Support Equipment Repairer CARDIOVASCULAR DISEASE 10/23/17
[2025-01-18 18:05] LABS: Hematocrit 43.4 % (37.0-47.0); Hemoglobin 14.4 g/dL (12.0-15.0); Immature Granulocyte Percent A 0.1 % (0-0.5); Lymphocytes Absolute Auto 2.65 K/mm3 (0.9-3.2); Mean Corpuscular HGB Conc 33.2 g/dl (32-36); Mean Corpuscular Hemoglobin 30.1 pg (26-34); Mean Corpuscular Volume 90.6 fl (80-100); Nucleated Red Blood Cells Absolute Auto 0.000 K/mm3 (0.0-0.012); Nucleated Red Blood Cells Perc 0.0 % (0.0-0.2); Platelet Count Result 211 k/mm3 (150-375); Red Blood Count 4.79 M/mm3 (4.2-5.4); White Blood Count 7.5 K/mm3 (4.5-10.0)
[2025-01-18] MEDS: SODIUM CHLORIDE 0.9% IV 1,000 ML 999 ML IV CONT (18:09)
[2025-01-18 18:11] LABS: Add Urine Microscopic? NO; Appearance Urine Clear (Clear); Glucose Urine UA Negative (Negative); Leukocyte Esterase Ur Negative LEU/UL (Negative); Nitrate Urine Negative (Negative); Specific Grav Ur 1.019 (1.001-1.035)
[2025-01-18] MEDS: METOCLOPRAMIDE HCL INJ 10 MG/2 ML VIAL IV PUSH (18:13)
--- NOTE | 2025-01-18 18:16 | ED_ITS ---
HPI - Weakness General Chief complaint: Weakness Stated complaint: weakness/nausea/LOC x 1 week Time Seen by Provider: 01/18/25 17:30 Source: patient Mode of arrival: ambulatory Limitations: no limitations History of Present Illness HPI Narrative: This is a 49 year old female that presents to the ER for generalized weakness. Reports she was off of her Mounjaro for a couple of months and recently re- started it. She was started back at the dose that she was on, not a lower dose. She has had nausea, vomiting, abdominal discomfort. Reports generalized weakness, syncopal episode while sitting in bed. Related Data Home Medications ?Medication ?Instructions ?Recorded ?Confirmed ?Last Taken ?Type insulin glargine U-300 conc 300 15 unit subcut QHS Unknown History unit/mL (1.5 mL) subcutaneous pen (Toujeo SoloStar U-300 Insulin) insulin regular human 8 unit See Rx Instructions inhal ation 01/11/25 Unknown History (90)/12 unit (90) cartridge with .COMPLEX inhaler (Afrezza (regular insulin)) Allergies Allergy/AdvReac Type Severity Reaction Status Date / Time Methotrexate Analogues Allergy Intermediate Nausea Verified 01/05/25 14:35 methotrexate Allergy Unknown Verified 01/05/25 14:35 Review of Systems 2 Review of Systems: All systems reviewed & are unremarkable except as noted in HPI and below PMFSH Past Medical History Medical History (Updated 01/18/25 @ 21:15 by Pauline Garcia PA-C) Restless legs syndrome (RLS) Hypothyroidism Diabetes mellitus Hypertension Dyslipidemia Surgical History Surgical History (Updated 01/05/25 @ 14:35 by Lisa Suggs) Hx of appendectomy H/O: hysterectomy Social History Social History (System 01/05/25 @ 14:35 by Lisa Suggs) Smoking status: Current some day smoker Exam 2 Narrative: GENERAL: Well-appearing, well-nourished, and in no acute distress. HEAD: Normocephalic, atraumatic. EYES: EOMI. ENT: Nares clear, no rhinorrhea or epistaxis. Mucous membranes moist. Oropharynx without tonsillar hypertrophy exudate or other lesions. Bilateral TMs pearly kwon non-bulging NECK: Supple. No adenopathy or masses. CHEST: Clear to auscultation. No respiratory distress. No wheezes rales or rhonchi HEART: Regular rate and rhythm. No murmur heard. Normal peripheral pulses. ABDOMEN: Soft, nontender, nondistended, normal active bowel sounds. EXTREMITIES: Normal range of motion. No edema. SKIN: Warm, dry, no rash. NEURO: No focal deficits. Alert and oriented x3. PSYCH: Normal mood and affect Course Vital Signs Vital signs: Vital Signs Temperature 97.7 F 01/18/25 17: Pulse Rate 84 01/18/25 17:25 Respiratory Rate 18 01/18/25 17:25 Blood Pressure 158/99 H 01/18/25 17:25 Pulse Oximetry 92 01/18/25 17:25 Oxygen Delivery Room Air 01/18/25 17: Temperature 97.7 F 01/18/25 17: Pulse Rate 73 01/18/25 19:14 Respiratory Rate 17 01/18/25 19:14 Blood Pressure 141/95 H 01/18/25 19:14 Pulse Oximetry 96 01/18/25 19:14 Oxygen Delivery Room Air 01/18/25 17:25 MDM - Weakness MDM Narrative Medical decision making narrative: Patient presents to the emergency department for nausea and vomiting, generalized weakness. Patient was recently restarted on her Mounjaro. She was started at her previous same dose, not a lower dose and titrated up. She is afebrile and nontoxic appearing. Her vitals are stable. Cbc without leukocytosis. Metabolic panel without concerning findings. Urine without evidence of infection. Initial lactic acid elevated, this normalized with IV fluids. Patient feeling much better after IV fluids, anti emetics. Tolerating p.o. challenge. She is to follow up with her provider. She was given warnings to return the ER Differential Diagnosis Differential diagnosis: Likely dehydration and other (DKA, medication side effect) Lab Data Attestation: I reviewed the patient's lab results. 01/18/25 17:51 01/18/25 17:51 Labs: Lab Results 01/18/25 01/18/25 01/18/25 Range/Units 17:51 17:54 18:07 WBC 7.5 (4.5-10.0) K/mm3 RBC 4.79 (4.2-5.4) M/mm3 Hgb 14.4 (12.0-15.0) g/dL Hct 43.4 (37.0-47.0) % MCV 90.6 (80-100) fl MCH 30.1 (26-34) pg MCHC 33.2 (32-36) g/dl RDW 12.6 (11.5-14.5) % Plt Count 211 (150-375) k/mm3 MPV 10.7 H (7.4-10.4) fl Immature Gran % (Auto) 0.1 (0-0.5) % Neut % (Auto) 53.1 (45.5-73.1) % Lymph % (Auto) 35.3 (18.3-44.2) % [place] % (Auto) 7.5 (2.6-8.5) % Eos % (Auto) 3.5 (0-4.4) % Baso % (Auto) 0.5 (0.2-1.2) % Lymph # (Auto) 2.65 (0.9-3.2) K/mm3 [place] # (Auto) 0.6 (0.1-0.6) K/mm3 Eos # (Auto) 0.3 (0-0.3) K/mm3 Baso # (Auto) 0.0 (0.0-0.1) K/mm3 Abs Immat Gran (auto) 0.01 (0.00-0.031) K/mm3 Absolute Neuts (auto) 4.0 (1.3-6.7) K/mm3 Absolute Nucleated RBC 0.000 (0.0-0.012) K/mm3 Nucleated RBC % 0.0 (0.0-0.2) % PT 13.8 (11.1-14.7) Seconds INR 1.0 APTT 25.3 (22.3-36.8) Seconds Sodium 135 L (137-145) mmol/L Potassium 3.8 (3.4-5.0) mmol/L Chloride 101 (98-107) mmol/L Carbon Dioxide 25 (22-30) mmol/L Anion Gap 9 (4-12) mmol/L BUN 11 (7-17) mg/dL Creatinine 0.50 L (0.7-1.0) mg/dL Estim Creat Clear Calc 124 ml/min Estimated GFR > 60 (59 - ) Glucose 123 H (65-110) mg/dL POC Capillary Glucose 127 H (65-105) mg/dl Lactic Acid 2.1 H (0.7-2.0) mmol/L Calcium 9.4 (8.4-10.2) mg/dL Phosphorus 3.1 (2.5-4.5) mg/dL Magnesium 1.6 (1.6-2.3) mg/dL Total Bilirubin 0.6 (0.2-1.3) mg/dL AST 37 H (14-36) U/L ALT 52 H (6-35) U/L Alkaline Phosphatase 56 (38-126) U/L Troponin I < 0.012 (0.000-0.034) ng/mL Total Protein 7.3 (6.3-8.2) g/dL Albumin 4.2 (3.5-5.1) g/dL Lipase 71 (23-300) U/L Urine Color Yellow (Yellow) Urine Appearance Clear (Clear) Urine pH 6.0 (5.0-9.0) Ur Specific [place] 1.019 (1.001-1.035) Urine Protein Negative (Negative) mg/dL Urine Glucose (UA) Negative (Negative) mg/dL Urine Ketones Negative (Negative) mg/dL Ur Blood (Man) Negative (Negative) Urine Nitrate Negative (Negative) Urine Bilirubin Negative (Negative) Urine Urobilinogen 1.0 (<2.0) mg/dL Leukocyte Esterase Rfl Negative (Negative) YFN/UL 01/18/25 01/18/25 Range/Units 20:20 20:28 WBC (4.5-10.0) K/mm3 RBC (4.2-5.4) M/mm3 Hgb (12.0-15.0) g/dL Hct (37.0-47.0) % MCV (80-100) fl MCH (26-34) pg MCHC (32-36) g/dl RDW (11.5-14.5) % Plt Count (150-375) k/mm3 MPV (7.4-10.4) fl Immature Gran % (Auto) (0-0.5) % Neut % (Auto) (45.5-73.1) % Lymph % (Auto) (18.3-44.2) % [place] % (Auto) (2.6-8.5) % Eos % (Auto) (0-4.4) % Baso % (Auto) (0.2-1.2) % Lymph # (Auto) (0.9-3.2) K/mm3 [place] # (Auto) (0.1-0.6) K/mm3 Eos # (Auto) (0-0.3) K/mm3 Baso # (Auto) (0.0-0.1) K/mm3 Abs Immat Gran (auto) (0.00-0.031) K/mm3 Absolute Neuts (auto) (1.3-6.7) K/mm3 Absolute Nucleated RBC (0.0-0.012) K/mm3 Nucleated RBC % (0.0-0.2) % PT (11.1-14.7) Seconds INR APTT (22.3-36.8) Seconds Sodium (137-145) mmol/L Potassium (3.4-5.0) mmol/L Chloride (98-107) mmol/L Carbon Dioxide (22-30) mmol/L Anion Gap (4-12) mmol/L BUN (7-17) mg/dL Creatinine (0.7-1.0) mg/dL Estim Creat Clear Calc ml/min Estimated GFR (59 - ) Glucose (65-110) mg/dL POC Capillary Glucose 74 (65-105) mg/dl Lactic Acid 1.8 (0.7-2.0) mmol/L Calcium (8.4-10.2) mg/dL Phosphorus (2.5-4.5) mg/dL Magnesium (1.6-2.3) mg/dL Total Bilirubin (0.2-1.3) mg/dL AST (14-36) U/L ALT (6-35) U/L Alkaline Phosphatase (38-126) U/L Troponin I (0.000-0.034) ng/mL Total Protein (6.3-8.2) g/dL Albumin (3.5-5.1) g/dL Lipase (23-300) U/L Urine Color (Yellow) Urine Appearance (Clear) Urine pH (5.0-9.0) Ur Specific [place] (1.001-1.035) Urine Protein (Negative) mg/dL Urine Glucose (UA) (Negative) mg/dL Urine Ketones (Negative) mg/dL Ur Blood (Man) (Negative) Urine Nitrate (Negative) Urine Bilirubin (Negative) Urine Urobilinogen (<2.0) mg/dL Leukocyte Esterase Rfl (Negative) YFN/UL ECG Data EKG #1: ECG completion date: 01/18/25 EKG Interpretation: normal rate, sinus rhythm, no ST changes and normal QT Critical Care Time Critical Care Time Critical Care Time: No Discharge Plan Discharge Clinical Impression: Medication side effect Nausea and vomiting Qualifiers: Vomiting type: unspecified Qualified Code(s): R11.2 - Nausea with vomiting, unspecified Patient Disposition: Home Condition: Stable Instructions: Acute Nausea and Vomiting (ED) Additional Instructions: Return to the ER if you experience fever, abdominal pain with nausea and vomiting, you are unable to keep down liquids or solids, or any other symptoms that are concerning to you Small, frequent meals. [place] diet. Remain well hydrated. Nausea medication as needed Follow up with your primary care provider Patient Language: Czech Prescriptions: No Action atorvastatin [Lipitor] 20 mg tablet 20 mg PO DAILY Qty: 30 2RF candesartan 4 mg tablet 4 mg PO DAILY Qty: 30 2RF cholecalciferol (vitamin D3) 1,250 mcg (50,000 unit) wafer 1,250 mcg PO WEEKLY Qty: 30 0RF omeprazole 40 mg capsule,delayed release(DR/EC) 40 mg PO BID Qty: 60 2RF paroxetine HCl 12.5 mg tablet extended release 24 hr 12.5 mg PO QAM Qty: 30 2RF ropinirole 0.5 mg tablet 0.5 mg PO BID Qty: 60 2RF Mounjaro 7.5 mg/0.5 mL pen injector 7.5 mg subcut WEEKLY Qty: 2 2RF tizanidine 2 mg capsule 2 mg PO TID PRN (Reason: muscle spasticity) Qty: 90 2RF levothyroxine [Levo-T] 137 mcg tablet 137 mcg PO DAILY Qty: 30 2RF metformin 1,000 mg tablet 1,000 mg PO BID Qty: 60 2RF (DME) FreeStyle Suzy 3 Plus Sensor Device See Rx Instructions .Route Qty: 6 1RF Rx Instructions: Use to check BS (DME) FreeStyle Suzy 3 [place] Misc See Rx Instructions .Route Qty: 1 0RF Rx Instructions: Use to check BS insulin glargine U-300 conc [Toujeo SoloStar U-300 Insulin] 300 unit/mL (1.5 mL) insulin pen 15 unit subcut QHS Afrezza 8 unit (90)/ 12 unit (90) cartridge with inhaler See Rx Instructions inhalation .COMPLEX Rx Instructions: 4-12 units with meals Mounjaro 5 mg/0.5 mL pen injector 5 mg subcut WEEKLY Qty: 2 0RF ondansetron 4 mg tablet,disintegrating 4 mg PO Q8H PRN (Reason: nausea and vomiting) Qty: 30 0RF Follow-up/Referrals: Ravi Dickson DO [Primary Care Provider, Internal Medicine]
[2025-01-18 18:21] LABS: Magnesium 1.6 mg/dL (1.6-2.3)
[2025-01-18 18:23] LABS: Alanine Aminotransferase 52 U/L (6-35); Albumin Level 4.2 g/dL (3.5-5.1); Alkaline Phosphatase 56 U/L (38-126); Anion Gap 9 mmol/L (4-12); Aspartate Amino Transferase 37 U/L (14-36); Bilirubin,Total 0.6 mg/dL (0.2-1.3); Blood Urea Nitrogen 11 mg/dL (7-17); Calcium 9.4 mg/dL (8.4-10.2); Carbon Dioxide 25 mmol/L (22-30); Chloride 101 mmol/L (98-107); Estimated CRCL calculation 124 ml/min; Estimated Glomerular Filt Rate > 60; Glucose 123 mg/dL (65-110); Lipase 71 U/L (23-300); Potassium 3.8 mmol/L (3.4-5.0); Sodium 135 mmol/L (137-145); Total Protein 7.3 g/dL (6.3-8.2)
[2025-01-18 18:34] LABS: Troponin I < 0.012 ng/mL (0.000-0.034)
[2025-01-18 18:49] LABS: INR 1.0; Prothrombin Time 13.8 Seconds (11.1-14.7)
[2025-01-18 18:50] LABS: Partial Thromboplastin Time 25.3 Seconds (22.3-36.8)
[2025-01-18 19:14] VITALS: BP 141/95; PULSE 73; RESP 17; O2SAT 96
[2025-01-18] MEDS: LACTATED RINGERS 1,000 ML 999 ML IV CONT (19:25)
[2025-01-18 21:20] VITALS: BP 148/105; PULSE 81; RESP 16; TEMP 36.6; O2SAT 98
== END 2025-01-18 21:35 | disposition home or self-care (01) ==
PROVIDERS: Student in an Organized Health Care Education/Training Program; Emergency Provider Physician Assistant; PCP Internal Medicine
DX: R11.2 Nausea with vomiting, unspecified (principal); T50.995A Adverse effect of other drugs, medicaments and biological substances, initial encounter
CPT/HCPCS: 36415; 80053; 81003; 82948; 83605; 83690; 83735; 84100; 84484; 85025; 85610; 85730; 93005; 96361; 96374; 96375; 99284; J1200; J2765; J7030; J7120

== ENCOUNTER 2025-01-19 12:45 | Outpatient (CLI) | payer OTHER, SELFPAY ==
--- OUTSIDE RECORDS SUMMARY | 2025-01-19 14:29 | XMS_ITS | Clinical Summary ---
Author Organization [facility] Address [address] [place] [address] Care Team Providers Care Trailer Tank Truck Driver Name Role Phone Martha Silvestre Primary Care Provider [phone] John Huerta MD Unavailable [phone] Allergies Active Allergy Reactions Criticality Noted Date Comments Methotrexate Other (see comment) 10/23/2017 Stomach cramps Medications Glucose Blood (ACCU-CHEK ACTIVE STRIPS) test stripIndications:C ontrolled type 2 diabetes mellitus without complication, without long-term current use of insulin ([facility]) 1 strip by Other route as needed. [...] complication, without long-term current use of insulin ([facility] HHS/HCC) Take 2 tablets (1,000 mg total) [...] complication, without long-term current use of insulin ([facility]) INJECT 0.25MG SUB-Q ONCE EVERY 7 DAYS [...] Comments Diabetes Father Hypertension Father neurfibromatosis Mother ME Paternal Grandfather Open Heart Paternal Grandfather Stroke [...] Comments Blood Pressure 118/80 01/28/2020 8:57 AM INTERMEDIATE FRAME TENDER Pulse 81 01/28/2020 8:57 AM INTERMEDIATE FRAME TENDER Temperature 36.2 C (97.1 F) 01/28/2020 8:57 AM INTERMEDIATE FRAME TENDER Respiratory Rate 20 01/28/2020 8:57 AM INTERMEDIATE FRAME TENDER Oxygen Saturation 95% 01/28/2020 8:57 AM INTERMEDIATE FRAME TENDER Inhaled Oxygen Concentration - - Weight 86.2 kg (190 lb) 02/03/2020 8:58 AM INTERMEDIATE FRAME TENDER Height 165.1 cm (5' 5) 02/03/2020 8:58 AM INTERMEDIATE FRAME TENDER Body Mass Index 31.62 02/03/2020 8:58 AM INTERMEDIATE FRAME TENDER Plan of Treatment Health Maintenance Due Date [...] HEPATITIS C ANTIBODY Routine 04/07/2019 8:54 AM INTERMEDIATE FRAME TENDER Elevated liver enzymes from Last 3 Months or Most Recently Relevant to Health Maintenance Results * MAMMOGRAM (05/08/2022) Anatomical Region Laterality Modality Other us Doc Med Group Scanned SCANNING Final Resu lt * HEPATITIS C ANTIBODY (04/07/2019 8:54 AM INTERMEDIATE FRAME TENDER) HEPATITIS C AB NON-REACTI VE NON-REACTI VE 04/10/2019 10:16 AM INTERMEDIATE FRAME TENDER [facility] 04/07/2019 8:54 AM INTERMEDIATE FRAME TENDER [facility] Final Resul t [facility] [address] [place] [address], [place] [phone] from Last 3 Months or Most Recently Relevant to Health Maintenance Care Teams Trailer Tank Truck Driver Relationship Specialty Start Date End Date Martha Silvestre APNP Family & Internal Medicine [address] [address] PCP - General ADVANCED PRACTICE OUTCOMES ANALYST 10/08/17 John Huerta MD [address] [facility] [address] [place] [id number] [place] Geographic Information Scientist CARDIOVASCULAR DISEASE 10/23/17
--- OUTSIDE RECORDS SUMMARY | 2025-01-19 14:29 | XMS_ITS | Clinical Summary ---
Author Organization [facility] Address [address] [place] [id number] Care Team Providers Care Central Supply Supervisor Name Role Phone Eran Shields MD Primary Care Provider Lisa Muñiz DAIRY EQUIPMENT REPAIRER Unavailable Allergies Active Allergy Reactions Criticality Noted Date [...] units daily. Needs the 4,8,12 cartridge box [facility] [address]-08. E11.65 30 day supply 180 each 11 [...] 03/31/2024 Assessment & Plan (03/31/2024 9:11 AM GIFT MANAGER): BMI Follow-up includes: nutrition counseling, exercise counseling, and education provided. Lesion of adrenal gland 06/19/2023 Screening for malignant neoplasm of colon 2022 Encounter to establish care 03/24/2022 Assessment & Plan (03/24/2022 12:16 PM GIFT MANAGER): A(n) initial well visit to establish care [...] home. Assessment & Plan (03/14/2023 4:33 PM GIFT MANAGER): BP ok in office, pt states she gets white coat syndrome. Will monitor and continue current regimen. Renal function looks good. Major depressive disorder wi th single episode, in partial remission 05/20/2018 Gout 04/14/2018 Elbow pain 11/04/2017 Vasovagal near syncope 10/24/2017 Vitamin D deficiency 10/17/2017 Assessment & Plan (03/14/2023 4:33 PM GIFT MANAGER): Vitamin D low, sending in weekly supplement--will recheck in 3 months with next lab draw. Acquired hypothyroidism 10/07/2017 Assessment & Plan (03/14/2023 4:37 PM GIFT MANAGER): Over functioning, decreasing Synthroid to 137 mcg [...] Grandfather Silvio Bynum Heart disease Paternal Grandfather Silvoi Bynum Stroke Paternal Grandfather Silvio Bynum Alzheimer's [...] on file Legal Sex Female 3:22 AM GIFT MANAGER Gender Identity Not on file Sexual Orientation [...] Comments Blood Pressure 140/84 03/31/2024 8:49 AM GIFT MANAGER Pulse 90 03/31/2024 8:49 AM GIFT MANAGER Temperature 36 C (96.8 F) 03/31/2024 8:49 AM GIFT MANAGER Respiratory Rate 18 03/31/2024 8:49 AM GIFT MANAGER Oxygen Saturation 97% 03/31/2024 8:49 AM GIFT MANAGER Inhaled Oxygen Concentration - - Weight 84.4 kg (186 lb) 03/31/2024 8:49 AM GIFT MANAGER Height 167.6 cm (5' 6) 03/31/2024 8:49 AM GIFT MANAGER Body Mass Index 30.02 03/31/2024 8:49 AM GIFT MANAGER Plan of Treatment Health Maintenance Due Date [...] Diagnosis Comments EGFR Routine 03/26/2024 10:20 AM GIFT MANAGER Hypertension associated with type 2 diabetes mellitus (HCC) LIPID PANEL Routine 03/26/2024 10:20 AM GIFT MANAGER Hypertension associated with type 2 diabetes mellitus [...] Maintenance Results * eGFR (03/26/2024 10:20 AM GIFT MANAGER) eGFR >90 >=60 mL/min/1. 73 m2 Comment: [...] reviewed 2021. Blood 03/26/2024 10:2 0 AM GIFT MANAGER 03/26/2024 10:30 AM GIFT MANAGER us Eran Shields MD LAB BLOOD ORDERABLES Final Result TERRY OSEI ([place]) [facility] Department [place] [address] * (ABNORMAL) Lipid panel (03/26/2024 10:20 AM GIFT MANAGER) Cholesterol 145 30 - 199 mg/dL Comment: [...] 2017. Triglycerides 164(H) <=149 mg/dL TERRY OSEI ([place]) Comment: Interpretive Data Ages < or = [...] 2023. Non-HDL Cholesterol 111 mg/dL TERRY OSEI ([place]) Comment: Interpretive Data Ages < or = [...] on 2017. Chol/HDL ratio 4 SARAHI OSEI ([place]) Blood 03/26/2024 10:2 0 AM GIFT MANAGER 03/26/2024 10:30 AM GIFT MANAGER Eran Shields MD LAB BLOOD ORDERABLES Final Result TONYSERG OSEI ([place]) [address] [facility] Department [place] [address] * (ABNORMAL) POCT hemoglobin A1c (01/09/2024 9:02 [...] was last revised 2018. Testing performed by: [facility], [address] [place]., [address] Creatinine Ur 44.2 mg/dL TERRY OSEI ([place]) Comment: Interpretive Data No reference range established. Current interpretive data was last revised 2018. Testing performed by: [facility], [address] [place] [address]., [id number] Albumin Creatinine Ratio, Ur <27 1 - 29 mg/g TERRY OSEI ([place]JNA) Comment:Testing performed by : [facility], [address] [place] [address]., [address] Urine 09/20/2023 12:5 3 PM CDT 09/20/2023 5:15 PM CDT us Eran Shields MD LAB URINE ORDERABLES Final Result TERRY OSEI ([place]) [address] [facility] Department [place] [address] * Screening Mammogram Bilateral W Shalom (08/06/2023 [...] Most Recently Relevant to Health Maintenance Insurance [facility] Address: [facility] [id number] [place] [phone] [facility] [employer] Address: [facility] [id number] [place] [phone] [facility] [employer] Address: [facility] [id number] [place] [phone] Care Teams Central Supply Supervisor Relationship Specialty Start Date End Date Eran Shields MD [address] [place] [address] PCP - General Family Medicine 03/21/22 Lisa Muñiz NP [address] [facility] [address] [place] [address] Nurse Practitioner Endocrinology Diabetes & Metabolism 06/24/24
[2025-01-19 15:19] LABS: Thyroid Stimulating Hormone 26.700 uIU/mL (0.465-4.680)
== END 2025-01-19 12:46 | disposition home or self-care (01) ==
LOC: ANHLAB 12:46
PROVIDERS: PCP Internal Medicine
DX: E03.9 Hypothyroidism, unspecified (principal)
CPT/HCPCS: 36415; 84443

== ENCOUNTER 2025-01-25 11:14 | Outpatient (CLI) | payer OTHER, SELFPAY ==
--- NOTE | ~2025-01-25 | XR_ITS ---
[id number] Indication: Cervicalgia Comparison: None Findings: The vertebral heights are intact. No fracture or subluxation. Moderate loss of disc height at C5-6 and C6-7 Soft tissues unremarkable Impression: No acute abnormality. Reviewed, dictated and finalized at location P. CIATE PROFESSOR OF MEDIA ARTS Impression: No acute abnormality.
== END 2025-01-25 11:15 | disposition home or self-care (01) ==
LOC: GOSHIMG 11:14
DX: M54.2 Cervicalgia (principal); G89.29 Other chronic pain
CPT/HCPCS: 72040

== ENCOUNTER 2025-02-19 07:43 | Outpatient (CLI) | payer OTHER, SELFPAY ==
[2025-02-19 08:28] LABS: Alanine Aminotransferase 49 U/L (6-35); Albumin Level 4.5 g/dL (3.5-5.1); Alkaline Phosphatase 66 U/L (38-126); Anion Gap 7 mmol/L (4-12); Aspartate Amino Transferase 32 U/L (14-36); Bilirubin,Total 0.5 mg/dL (0.2-1.3); Blood Urea Nitrogen 17 mg/dL (7-17); Calcium 10.4 mg/dL (8.4-10.2); Carbon Dioxide 25 mmol/L (22-30); Chloride 103 mmol/L (98-107); Cholesterol 139 mg/dL (0-200); Estimated Glomerular Filt Rate > 60; Glucose 121 mg/dL (65-110); HDL Direct 38 mg/dL; Potassium 4.0 mmol/L (3.4-5.0); Sodium 135 mmol/L (137-145); Total Protein 7.9 g/dL (6.3-8.2); Triglycerides 146 mg/dL (<150)
[2025-02-19 08:33] LABS: Hemoglobin A1C 9.0 % (<5.7)
[2025-02-19 09:04] LABS: Thyroid Stimulating Hormone 6.510 uIU/mL (0.465-4.680)
== END 2025-02-19 07:44 | disposition home or self-care (01) ==
LOC: ANHLAB 07:44
DX: E11.9 Type 2 diabetes mellitus without complications (principal); Z79.4 Long term (current) use of insulin; E78.5 Hyperlipidemia, unspecified
CPT/HCPCS: 36415; 80053; 80061; 83036; 84443

== ENCOUNTER 2025-03-05 06:43 | Outpatient (CLI) | payer OTHER, SELFPAY ==
--- NOTE | ~2025-03-05 | MR_ITS ---
EXAMINATION: MR brain/brain stem wo/w con DATE: 03/05/2025 07:22 INDICATION: Unspecified visual loss. TECHNIQUE: Magnetic resonance imaging (MRI) of the brain and brainstem was performed without and with 16 mL MultiHance intravenous contrast. COMPARISON: None. FINDINGS: There are a few foci of nonspecific increased T2-weighted signal intensity in the cerebral white matter, which is within normal limits for the patient's age. There is no intracranial hemorrhage, acute infarction, or abnormal intracranial mass lesion. The ventricles are normal in size. There is mucosal thickening in the paranasal sinuses. The orbits are normal. There is a trace left mastoid effusion. IMPRESSION: 1. Normal aging brain. Reviewed, dictated and finalized at location E. URIC ACID PLANT SUPERVISOR IMPRESSION: 1. Normal aging brain.
--- OUTSIDE RECORDS SUMMARY | 2025-03-05 06:47 | XMS_ITS | Clinical Summary ---
Author Organization [facility] Address [address] [place] [address] Care Team Providers Care Wood Carving Machine Operator Name Role Phone Martha Silvestre Primary Care Provider [phone] John Huerta MD Unavailable [phone] Allergies Active Allergy Reactions Criticality Noted Date Comments Methotrexate Other (see comment) 10/23/2017 Stomach cramps Medications Glucose Blood (ACCU-CHEK ACTIVE STRIPS) test stripIndications:C ontrolled type 2 diabetes mellitus without complication, without long-term current use of insulin ([facility]) 1 strip by Other route as [...] complication, without long-term current use of insulin ([facility] HHS/HCC) Take 2 tablets (1,000 mg [...] complication, without long-term current use of insulin ([facility]) INJECT 0.25MG SUB-Q ONCE EVERY 7 [...] Date Smoking Tobacco: Every Day Cigarettes 1 6 Started: 2019 Smokeless Tobacco: Never Alcohol Use [...] Comments Blood Pressure 118/80 01/28/2020 8:57 AM TRUCK ENGINE TECHNICIAN Pulse 81 01/28/2020 8:57 AM TRUCK ENGINE TECHNICIAN Temperature 36.2 C (97.1 F) 01/28/2020 8:57 AM TRUCK ENGINE TECHNICIAN Respiratory Rate 20 01/28/2020 8:57 AM TRUCK ENGINE TECHNICIAN Oxygen Saturation 95% 01/28/2020 8:57 AM TRUCK ENGINE TECHNICIAN Inhaled Oxygen Concentration - - Weight 86.2 kg (190 lb) 02/03/2020 8:58 AM TRUCK ENGINE TECHNICIAN Height 165.1 cm (5' 5) 02/03/2020 8:58 AM TRUCK ENGINE TECHNICIAN Body Mass Index 31.62 02/03/2020 8:58 AM TRUCK ENGINE TECHNICIAN Plan of Treatment Health Maintenance Due Date [...] HEPATITIS C ANTIBODY Routine 04/07/2019 8:54 AM TRUCK ENGINE TECHNICIAN Elevated liver enzymes from Last 3 Months or Most Recently Relevant to Health Maintenance Results * MAMMOGRAM (05/08/2022) Anatomical Region Laterality Modality Other us Doc Med Group Scanned SCANNING Final Resu lt * HEPATITIS C ANTIBODY (04/07/2019 8:54 AM TRUCK ENGINE TECHNICIAN) HEPATITIS C AB NON-REACTI VE NON-REACTI VE 04/10/2019 10:16 [address] TRUCK [address]INE [address]ICIAN [facility] 04/07/2019 8:54 AM TRUCK ENGINE TECHNICIAN us Martha [facility] Final Resul t [facility] [address] [place] [address], [place] [phone] from Last 3 Months or Most Recently Relevant to Health Maintenance Care Teams Wood Carving Machine Operator Relationship Specialty Start Date End Date Martha Silvestre APNP Family & Internal Medicine [address] [address] PCP - General ADVANCED PRACTICE COUNSELING DIRECTOR 10/08/17 John Huerta MD [address] [facility] [address] [place] [phone] [place] Under[employer] Hemmer CARDIOVASCULAR DISEASE 10/23/17
== END 2025-03-05 06:44 | disposition home or self-care (01) ==
DX: H54.7 Unspecified visual loss (principal); R51.9 Headache, unspecified; Z84.89 Family history of other specified conditions
CPT/HCPCS: 70553; A9577